=== PATIENT | female | born 1990 | race Caucasian/White ===

== ENCOUNTER 2018-10-05 11:30 | Observation (INO) ==
[2018-10-05 12:16] LABS: Amphetamine Screen,Urine Negative ng/mL (Cutoff=1000); Barbiturate Screen,Urine Negative ng/mL (Cutoff=200); Benzodiazepines Screen,Urine Negative ng/mL (Cutoff=200); Cannabinoid Screen,Urine Negative ng/mL (Cutoff = 50); Cocaine Screen,Urine Negative ng/mL (Cutoff= 300); Opiate Screen,Urine Negative ng/mL (Cutoff=300); Phencyclidine Screen,Urine Negative ng/mL (Cutoff=25)
--- NOTE | 2018-10-05 13:06 | Discharge Summary ---
Date of Encounter: 10/05/18 Time of Encounter: 13:05 - Discharge Diagnosis (1) 38 weeks gestation of Priority: Primary Status: Acute Comments: Admit to observation for labor evaluation (2) NST (non-stress test) reactive Priority: Secondary Status: Acute Comments: FHR 140 bpm, moderate variability, +15x15 accels, no decels. (3) False labor after 37 weeks of gestation without delivery Priority: Secondary Status: Acute Comments: No cervical change in 1 hour. Induction of labor scheduled in 2 days. - Discharge Medications Prescriptions: No Action Ranitidine HCl [Zantac 75] 1 tab PO PRN PRN PRN Reason: Heartburn Vits #90/Iron Fum/FA [ Formula Tablet] 1 tab PO DAILY Ferrous Sulfate [High Potency Iron] 1 tab PO DAILY Home Medications: Ferrous Sulfate [High Potency Iron] 1 tab PO DAILY 10/05/18 [History] Vits #90/Iron Fum/FA [ Formula Tablet] 1 tab PO DAILY 10/05/18 [History] Ranitidine HCl [Zantac 75] 1 tab PO PRN PRN 10/05/18 [History] Allergies/Adverse Reactions: Allergy/AdvReac Type Severity Reaction Status Date / Time No Known Allergies Allergy Verified 03/08/18 19:17 Data Procedures and tests throughout hospitalization: Laboratory Tests 10/05/18 12:01 Urine Opiates Screen Negative Ur Barbiturates Screen Negative Ur Phencyclidine Scrn Negative Ur Amphetamines Screen Negative U Benzodiazepines Scrn Negative Urine Cocaine Screen Negative U Marijuana (THC) Screen Negative Ur Drug Screen Interp See Below Labs on day of discharge: Labs from last 24 hours 10/05/18 12:01 Urine Opiates Screen Negative Ur Barbiturates Screen Negative Ur Phencyclidine Scrn Negative Ur Amphetamines Screen Negative U Benzodiazepines Scrn Negative Urine Cocaine Screen Negative U Marijuana (THC) Screen Negative Ur Drug Screen Interp See Below Date of admission: 10/05/18 11:30 Primary care physician: PCP NONE Discharging clinician: Mitra Chou Anticipated date of discharge: 10/05/18 - Patient Status Disposition: Home, Self-Care Condition: Good Functional capacity at discharge: independent ambulation Overall status at discharge: patient is progressing back to baseline - Discharge Instructions Follow Up With: NONE,PCP [Primary Care Provider] - - Diet and Activity Activity: resume usual activities as tolerated Diet: regular diet 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 She reports positive movement, denies vaginal bleeding and fluid leakage. She was monitored >1 hr with no cervical change. Reactive NST was noted and patient will be discharged home with labor precautions. She is scheduled for IOL in 2 days. Time Attestation: Total time spent providing and/or coordinating discharge services: Time Spent: Less than 30 minutes Exam - Constitutional General appearance IM: A&O X 3, no acute distress - Respiratory Respiratory exam: Present: CTAB. Absent: respiratory distress - Cardiovascular Cardiovascular exam IM: Present: RRR, +S1, +S2. Absent: irregular rhythm - GI/Abdominal GI/Abdominal exam IM: normal bowel sounds - Rectal Rectal exam: deferred - External exam: normal external exam - Extremities Exam Extremities exam IM: Present: full ROM, normal capillary refill, normal inspection. Absent: calf tenderness - Neurological Exam Neurological exam: alert, normal gait, oriented X3 - VTE Reasons for not Prescribing Prophylaxis: Treatment not Indicated - Low risk for VTE
== END 2018-10-05 13:11 | disposition home or self-care (01) ==
LOC: 1NENULAB
PROVIDERS: ADMIT Registered Nurse; ATTEND Registered Nurse

== ENCOUNTER 2018-10-06 07:28 | Inpatient (IN) ==
[~2018-10-06 07:28] MED LIST: Famotidine 20 MG/2 ML VIAL IVP PRN; Metoclopramide 10 MG/2 ML VIAL IVP PRN; Naloxone 0.4 MG/ML INJ IVP PRN
[2018-10-06] MEDS ORDERED: Ringers Solution, Lactated 1,000 ML IVC SCH (07:30)
--- NOTE | 2018-10-06 07:35 | OB/GYN History & Physical ---
Date of Encounter: 10/06/18 Time of Encounter: 07:30 Assessment and Plan (1) Active labor at term Current visit: Yes Status: Acute 27yo at 39+2wks GA who presents in active labor 1. Labor - SVE: /-2, change from 3cm yesterday - actively dillon q2-3 minutes, lasting 1 min in duration - patient declines epidural at this time but reports significant pain - will consult anesthesia regardless, OK for nubain pending CEFM - GBS negative, vertex presentation - ~7# leopolds, UTD PNC with Dr. Rangel - plan for expectant management, will rediscuss epidural - likely plan for AROM when able - labs pending: CBC, T&S, Syphilis 2. MWB - uncomplicated - daily PNV, no meds otherwise - reports increased cervical change mucus (pink tinged) - denies active vaginal bleeding or leaking of fluid 3. FWB - S = D - active movement Dispo: Admit to L&D for active labor. GBS negative, vertex. OK for epidural if patient desires. If still declines, OK for nubain after CEFM is reassuring. Plan to progress toward . MD ROBBIN History of Present Illness Chief complaint: labor HPI: Ms. Tompkins is a 27 year old female at 39+2wks GA who presents with severe abdominal cramping and contraction(s). Patient with UTD PNC with Dr. Rangel. Denies vaginal bleeding and gush of fluid. Reports contraction(S) to be regular and painful. States these are approximately 2-3 minutes apart and last ~1 min. At this time, the patient declines epidural. SHe was most recently seen yesterday in triage where she was found to be ~3 cm. R&RNST for GA, and therefore she was discharged to home with an unchanged cervix. Patient continues to report movement. She denies fevers/chills. Uncomplicated otherwise. PNB: A positive, AB screen negative Rubella Immune Varicella Immune HIV 1/2 nonreactive HBsAg negative RPR negative CBC: 9.7, PLT 273 Urine cx negative 1HR glucola: 126 GC/CT negative GBS negative Past Med Surg Social Fam HX - Past Medical History Medical history: no medical history Psychiatric history: no psych history - Past Surgical History Additional surgical history: d&c - Social History Smoking Status: Former smoker Smokeless Tobacco Status: No Alcohol use: none Drug use: none - Family History Mother Living Status: Still Living Hx Family Cardiac Disorders: No Hx Family Respiratory Disorders: No Hx Family Cancer: No Hx Family GI Disorders: No Hx Family Endocrine Disorder: No Hx Family Neuromuscular Disorders: No Hx Family Neurologic Disorders: No Hx Family HEENT Disorders: No Hx Family Autoimmune Disorders: No Obstetrical History - Pregnancies : 2 Para: 0 Term: 0 : 0 Ab's: 1 Livin - History/Complications History/Complications: G1: SAB G2: uncomplicated Medications and Allergies Ferrous Sulfate [High Potency Iron] 1 tab PO DAILY 10/05/18 [History] Vits #90/Iron Fum/FA [ Formula Tablet] 1 tab PO DAILY 10/05/18 [History] Ranitidine HCl [Zantac 75] 1 tab PO PRN PRN 10/05/18 [History] Allergy/AdvReac Type Severity Reaction Status Date / Time No Known Allergies Allergy Verified 03/08/18 19:17 Exam - Constitutional Constitutional: well developed, well nourished, no acute distress, average body habitus - HEENT HEENT: Normocephaly, Mucus Membranes Moist - Neck Neck exam: full ROM - Lungs Respiratory exam: CTAB - Cardiovascular Cardiovascular exam: RRR - Breasts Breast: bilateral: normal - Abdomen Abdomen: Present: bowel sounds normal, gravid, non tender - Extremities Extremities exam: normal inspection Deep Tendon Reflex Grade: 2+ Normal - Vagina Vagina: Present: normal moisture - Cervix Dilation: 5 Effacement: 90 Station: -2 - Uterus Uterus exam: Present: normal size, normal contour - Anus/Rectum Anus/Rectum: Present: normal perianal skin, heme negative Results All other labs normal. - VTE Reasons for not Prescribing Prophylaxis: Treatment not Indicated - Low risk for VTE
[2018-10-06] MEDS ORDERED: Ondansetron 4 MG/2 ML VIAL IVP PRN (08:17)
[2018-10-06 08:22] LABS: Basophils % 0.2 %; Eosinophils # 0.1 K/mcL (0.0-0.6); Eosinophils % 0.5 %; Hematocrit 31.2 % (35.3-44.9); Hemoglobin 10.3 g/dL (11.5-15.4); Immature Granulocytes % 0.5 % (0-4); Lymphocytes # 2.7 K/mcL (0.6-4.6); Lymphocytes % 14.4 %; Mean Corpuscular Hemoglobin 25.6 pg (28.0-33.3); Mean Corpuscular Volume 77.6 fL (83.0-100.0); Monocytes # 1.5 K/mcL (0.0-1.3); Monocytes % 8.1 %; Platelet Count 352 K/mcL (140-400); Red Blood Count 4.02 M/mcL (3.82-4.97); Red Cell Distribution Width 12.6 % (11.5-14.5); Segmented Neutrophils % 76.3 %; White Blood Count 18.4 K/mcL (4.3-11.1)
[2018-10-06] MEDS ORDERED: *HR* FentaNYL (PF) 100 MCG/2 ML VIAL EP ONE (08:43)
[2018-10-06] MEDS ORDERED: *HR* Ropivacaine/PF 0.2% 20 ML VIAL EP ONE (08:43)
[2018-10-06] MEDS ORDERED: Epidural Premix (fent/bupiv) 110 ML EP SCH (08:45)
[2018-10-06] MEDS ORDERED: Lidocaine -MPF 2% 5 ML VIAL ONE (08:52)
[2018-10-06] MEDS ORDERED: Epidural Premix (fent/bupiv) 110 ML EP ONE (08:56)
--- NOTE | 2018-10-06 09:22 | Anesthesia Evaluation PreOp ---
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 Other Medical History: GERD Anesthesia History: No Prior Anesthetic Complications, Past Anesthesia (D&C) : Yes Test: Positive Alcohol Use: none Drug use: none Medications and Allergies Ferrous Sulfate [High Potency Iron] 1 tab PO DAILY 10/05/18 [History] Vits #90/Iron Fum/FA [ Formula Tablet] 1 tab PO DAILY 10/05/18 [History] Ranitidine HCl [Zantac 75] 1 tab PO PRN PRN 10/05/18 [History] Allergy/AdvReac Type Severity Reaction Status Date / Time No Known Allergies Allergy Verified 03/08/18 19:17 - Meds/Allergy Pre-op Review Medications Reviewed: Yes Allergies Reviewed: Yes Beta Blockers on Current Med List: No Anesthesia Results - Labs 10/06/18 08:00 Anesthesia Exam 130/78 112 16 fht 132 Height: 5'3" Weight: 86k NPO (# of Hours): 2 Pain Scale: 8 Pain Scale Used: Numeric (1 - 10) - HEENT Pupil (Motor): Pupils equal Mallampati: III Oral Opening: Greater than 3 - 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
--- NOTE | 2018-10-06 09:26 | Anesthesia Procedures ---
Date of Encounter: 10/06/18 Time of Encounter: 09:24 Procedures: Anesthesia - Epidural/Spinal Patient ID/Chart reviewed: Yes Patient examined: Yes OB Eval: Gestational age: 40 OB Eval: : 2 OB Eval: Hx Para: 0 OB Eval: Dilated at (cm): 4 OB Eval: Contractions: Non-stressed pattern Consent Obtained: Yes Supplemental Oxygen: None/Room Air Site Prep: Aseptic Technique, Sterile prep and drape, 0.5% Chlorhexidine/Alcohol Patient position: upright Local Anesthetic: Lidocaine 1% Amount of Local Anesthetic used: 3 Touhy Needle Gauge: 18 Touhy Needle Depth (cm): 8 Catheter Depth at Skin (cm): 15 Test Dose (1.5% Lido + Epi): Volume given (mls): 3 Test Dose Result: Negative Loading Dose: Fentanyl (mcg): 100 Loading Dose: Other: Jose Cruz 0.2% 5cc Loading Dose Administered: Thru Touhy Needle Infusion Med: 0.125% Bupivacaine w/ 2 mcg/ml Fentanyl Infusion Rate (mls/hr): 15 (pcea 5cc q30") Catheter Secured in Place: Tegaderm Interspace Used: L2-L3 Loss of Resistance (SCOTT): Yes Blood: No CSF: No Paresthesia: No Procedure: aseptic, yogi well, VSS, effective Vitals + FHT's: 130/78 112 16 fht 132
[2018-10-06 10:00] LABS: Amphetamine Screen,Urine Negative ng/mL (Cutoff=1000); Barbiturate Screen,Urine Negative ng/mL (Cutoff=200); Benzodiazepines Screen,Urine Negative ng/mL (Cutoff=200); Cannabinoid Screen,Urine Negative ng/mL (Cutoff = 50); Cocaine Screen,Urine Negative ng/mL (Cutoff= 300); Opiate Screen,Urine Negative ng/mL (Cutoff=300); Phencyclidine Screen,Urine Negative ng/mL (Cutoff=25)
[2018-10-06] MEDS ORDERED: Oxytocin 20 units/ LR 1000 mL 20 UNIT/1,000 ML BAG IVC ONE ×2 (11:45→15:45)
[2018-10-06] MEDS ORDERED: Lidocaine/EPI 1:200k 1% PF 10 ML VIAL ONE (13:44)
[2018-10-06] MEDS ORDERED: Acetaminophen 325 MG TABLET PO ONE (14:46)
[2018-10-06] MEDS ORDERED: Oxytocin 20 units/ LR 1000 mL 20 UNIT/1,000 ML BAG IVC SCH (16:48)
[2018-10-06] MEDS ORDERED: Acetaminophen 325 MG TABLET PO PRN (16:48)
[2018-10-06] MEDS ORDERED: Measles/Mumps/Rubella Vacc 0.5 ML VIAL SQ PRN (16:48)
[2018-10-06] MEDS ORDERED: Rho Immune Globulin 1,500 UNIT SYRINGE IM PRN (16:48)
--- NOTE | 2018-10-06 17:55 | OB/GYN Procedure Note ---
Delivery - Delivery Date: 10/06/18 Provider: Oren Rangel Intrapartum events: none Delivery monitor: external FHT, external uterine Anesthesia: epidural Quantitated Blood Loss: 400 - (s) A Infant Delivery Date: 10/06/18 Infant Delivery Time: 14:00 Presentation: vertex Position: LOP Gender: Female Viability: Viable Weight Gram: 3.82 kg at 1 minute: 8 at 5 mins: 8 Shoulder Dystocia: not encountered Placenta: spontaneous Cord: nuchal cord, delivered through nuchal - Repair Episiotomy: midline Laceration Description: Perineal - 3rd Degree (Partial just extending into m uscle fascia) - Complications Delivery complications: none - Disposition Mom disposition: stable in LDR [place] disposition: stable in LDR - Comments Comments: Pt s/p vacuum assisted vaginal delivery from LOP presentation without difficulty. Infant was deliverd from +3 station with 4 attempts, first three with KIwi resulted in progression of station each time but pop off. Pt was quite exhausted and therefore mitivac was applied at +4 and infant delivered. 2nd degree midline epis was cut and partial 3rd degree occured during delivery. We had spontaneous delivery of normal placenta with 3 vc. laceration and episiotomy repaired with 2-0 and 3-0 vicryl. EBL 400cc. Mother and recovered in LDR.
[2018-10-07 08:53] VITALS: BP 128/81
[2018-10-07] MEDS ORDERED: Prenatal Vit/FA 1 EACH TABLET PO SCH (09:00)
--- NOTE | 2018-10-07 10:30 | Discharge Summary ---
Date of Encounter: 10/07/18 Time of Encounter: 10:36 - Discharge Diagnosis (1) (normal spontaneous vaginal delivery) Priority: Primary Status: Acute Comments: Pt doing well s/p . Will D/c home. - Discharge Medications Prescriptions: New Ibuprofen [Motrin] 600 mg PO Q6HR PRN #40 tab PRN Reason: motrin No Action Ranitidine HCl [Zantac 75] 1 tab PO PRN PRN PRN Reason: Heartburn Vits #90/Iron Fum/FA [ Formula Tablet] 1 tab PO DAILY Ferrous Sulfate [High Potency Iron] 1 tab PO DAILY Home Medications: Ferrous Sulfate [High Potency Iron] 1 tab PO DAILY 10/05/18 [History] Vits #90/Iron Fum/FA [ Formula Tablet] 1 tab PO DAILY 10/05/18 [History] Ranitidine HCl [Zantac 75] 1 tab PO PRN PRN 10/05/18 [History] Ibuprofen [Motrin] 600 mg PO Q6HR PRN #40 tab 10/07/18 [Rx] Allergies/Adverse Reactions: Allergy/AdvReac Type Severity Reaction Status Date / Time No Known Allergies Allergy Verified 03/08/18 19:17 Data Procedures and tests throughout hospitalization: Laboratory Tests 10/06/18 10/06/18 08:00 09:38 WBC 18.4 H RBC 4.02 Hgb 10.3 L Hct 31.2 L MCV 77.6 L MCH 25.6 L MCHC 33.0 RDW 12.6 Plt Count 352 MPV 10.0 Immature Gran % 0.5 Seg Neutrophils % 76.3 Lymphocytes % 14.4 Monocytes % 8.1 Eosinophils % 0.5 Basophils % 0.2 Neutrophils # 14.0 H Lymphocytes # 2.7 Monocytes # 1.5 H Eosinophils # 0.1 Basophils # 0.0 Urine Opiates Screen Negative Ur Barbiturates Screen Negative Ur Phencyclidine Scrn Negative Ur Amphetamines Screen Negative U Benzodiazepines Scrn Negative Urine Cocaine Screen Negative U Marijuana (THC) Screen Negative Ur Drug Screen Interp See Below - Impressions Doing well, minimal pain, appropriate lochia. Breast feeding going well. 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 [CONS] Routine Comment: Vaginal delivery, consult needed - Patient Status Disposition: Home, Self-Care Condition: Good Functional capacity at discharge: independent ambulation Overall status at discharge: patient is back to baseline - Discharge Instructions Follow Up With: Oren Rangel MD [Partnered Physician] - - Diet and Activity Activity: increase activity as tolerated Diet: advance to your usual diet Hospital Course [facility] Time Attestation: Total time spent providing and/or coordinating discharge services: Exam - Constitutional Vitals: Temp Pulse Resp BP Pulse Ox 97.8 F 105 18 128/81 97 10/07/18 08:00 10/07/18 08:00 10/07/18 08:00 10/07/18 08:00 10/07/18 08:00 General appearance IM: A&O X 3 - Respiratory Respiratory exam: Present: CTAB - Cardiovascular Cardiovascular exam IM: Present: RRR - GI/Abdominal GI/Abdominal exam IM: normal bowel sounds - Uterus Position: 2 Fingers Below Umbilicus - Extremities Exam Extremities exam IM: Present: full ROM - Neurological Exam Neurological exam: oriented X3 - VTE Reasons for not Prescribing Prophylaxis: Treatment not Indicated - Low risk for VTE
== END 2018-10-07 17:57 | disposition home or self-care (01) | DRG 768 ==
LOC: 1NENULAB → 1NENUOBS 16:48
PROVIDERS: ADMIT Advanced Practice Midwife; ATTEND Advanced Practice Midwife